=== PATIENT | female | born 1985 | race Caucasian/White ===

== ENCOUNTER 2018-06-29 14:43 | Emergency (ER) | payer MEDICAID ==
[~2018-06-29] VITALS: Ht 170.2 cm; Wt 98.6 kg
[2018-06-29 14:55] VITALS: BP 111/57
--- NOTE | 2018-06-29 14:59 | NUR ---
PT TAKEN TO LOBBY TO WAIT FOR AN AVAILABLE BED W/ VSS AND AMBULATORY W/ STEADY GAIT
--- NOTE | 2018-06-29 15:17 | NUR ---
PT AMBULATES TO BED 2
--- NOTE | 2018-06-29 15:17 | NUR ---
32 YO F BIB SELF W/ C/O BACK PAIN AND MIGRAINE SINCE 0 THIS MORNING. PT DENIES INJURY TO HEAD/NECK/BACK. AAOX4, GCS 15. DENIES N/V/FEVER. TOOK [id number] NAPROXEN W/O RELIEF. DENIES N/V/D; SKIN IS PINK/WARM/DRY; AAOX4 WITH EVEN AND STEADY GAIT; LUNGS CLEAR BL; HR EVEN AND REGULAR; PT DENIES ANY FEVER, CP, SOB, OR COUGH AT THIS TIME; PATIENT STATES PAIN OF 0/10 AT THIS TIME; VSS; PATIENT POSITIONED FOR COMFORT; HOB ELEVATED; BEDRAILS UP X2; BED DOWN. ER MD MADE AWARE OF PT STATUS.
--- NOTE | 2018-06-29 16:00 | NUR ---
pt resting w/ vss and rr even and unlabored at this time. needs met, safety precautions in place. will continue to monitor.
[2018-06-29] MEDS ORDERED: KETOROLAC 60 MG/2 ML VIAL IM ONE (16:05)
[2018-06-29 16:36] VITALS: BP 111/57
--- NOTE | 2018-06-29 16:37 | NUR ---
Patient discharged with v/s stable. Written and verbal after care instructions given and explained. Patient alert, oriented and verbalized understanding of instructions. Ambulatory with steady gait. All questions addressed prior to discharge. ID band removed. Patient advised to follow up with PMD. Rx of acetaminophen and motrin given. Patient educated on indication of medication including possible reaction and side effects. Opportunity to ask questions provided and answered.
== END 2018-06-29 16:37 | disposition home or self-care (01) ==
LOC: MED 14:43
DX: S23.3XXA Sprain of ligaments of thoracic spine, initial encounter (principal); Z90.49 Acquired absence of other specified parts of digestive tract; X58.XXXA Exposure to other specified factors, initial encounter; Y93.89 Activity, other specified; Y92.89 Other specified places as the place of occurrence of the external cause; Y99.8 Other external cause status
CPT/HCPCS: 81002; 81025; 96372; 99283; J1885